=== PATIENT | female | born 1980 | race African-American/Black ===

== ENCOUNTER 2016-09-14 13:13 | Inpatient (IN) ==
[2016-09-14 14:05] LABS: URINE SOURCE VOIDED
[2016-09-14] MEDS ORDERED: AMPICILLIN 2 GM/NS 2 GM/100 ML IVPB IV ONE (14:12)
[2016-09-14 14:23] LABS: BILIRUBIN URINE NEGATIVE (NEGATIVE); BLOOD URINE TRACE (NEGATIVE); CLARITY CLEAR (CLEAR); COLOR YELLOW; LEUKOCYTES URINE 1+ (NEGATIVE); NITRITE URINE POSITIVE (NEGATIVE); PROTEIN URINE 2+(100 mg/dL) mg/dL (NEGATIVE); UROBILINOGEN URINE NORMAL
[2016-09-14] MEDS ORDERED: LR 1,000 ML ONE (14:30)
[2016-09-14 14:34] LABS: MANUAL DIFF NEEDED? NO
[2016-09-14 14:36] LABS: BASO% 0.1 % (0.0-0.8); EOS# 0.05 X1000 (0.0-0.7); EOS% 0.7 % (0.0-10.0); HEMATOCRIT 41.2 % (37.0-47.0); HEMOGLOBIN 13.8 g/dL (12.0-16.0); IMM GRAN# 0.02 X1000 (0.0-0.04); IMM GRAN% 0.3 % (0.0-0.5); LYMPH# 0.98 X1000 (1.2-3.4); LYMPH% 13.2 % (20.5-51.1); MCH 30.5 PG (27-31); MCHC 33.5 g/dL (33-37); MCV 90.9 FL (81-99); MONO# 0.65 X1000 (0.11-0.59); MONO% 8.8 % (1.7-9.3); MPV 12.6 FL (7.4-10.4); NEUT% 76.9 % (42.2-75.2); PLT 142 X1000 (130-400); RBC 4.53 XMIL (4.2-5.4)
[2016-09-14] MEDS ORDERED: SODIUM CHLORIDE 0.9% INJ SCH (14:45)
[2016-09-14] MEDS ORDERED: STADOL IV PRN (14:45)
[2016-09-14] MEDS ORDERED: PEPCID PO PRN (14:45)
[2016-09-14] MEDS ORDERED: ZOFRAN IV PRN (14:45)
[2016-09-14] MEDS ORDERED: KEFZOL 1 GM/D5W 1 GM/50 ML IVPB IV PRN (14:45)
[2016-09-14] MEDS ORDERED: LR 1,000 ML IV SCH (14:45)
[2016-09-14] MEDS ORDERED: TYLENOL PO PRN (14:45)
[2016-09-14] MEDS ORDERED: PEPCID PO ONE (14:45)
[2016-09-14] MEDS ORDERED: PITOCIN 30 UNITS/LR 30 UNITS/500 ML IV.SOLN IV SCH (14:45)
[2016-09-14] MEDS ORDERED: LR 500 ML IV ONE (14:45)
[2016-09-14] MEDS ORDERED: PEPCID IV PRN (14:45)
[2016-09-14] MEDS ORDERED: REGLAN PO ONE (14:45)
[2016-09-14] MEDS ORDERED: FENTANYL-BUPIV-NS 2 MCG-0.1% 200 ML EPIDURAL PRN (15:17)
[2016-09-14] MEDS ORDERED: SENSORCAINE-MPF 0.5%/EPI 1:200,000 ONE (17:01)
[2016-09-14] MEDS ORDERED: NORCO-10 PO PRN (17:55)
[2016-09-14] MEDS ORDERED: M-M-R II VACCINE SUBQ ONE (17:55)
[2016-09-14] MEDS ORDERED: HYDROXYZINE PO PRN (17:55)
[2016-09-14] MEDS ORDERED: PITOCIN IM PRN (17:55)
[2016-09-14] MEDS ORDERED: PITOCIN 20 UNITS/LR 20 UNITS/1,000 ML IV.SOLN IV SCH (17:55)
[2016-09-14] MEDS ORDERED: HYDROXYZINE IM PRN (17:55)
[2016-09-14] MEDS ORDERED: BOOSTRIX VACCINE IM ONE (17:55)
[2016-09-14] MEDS ORDERED: XYLOCAINE-MPF 1% INJ PRN (17:55)
[2016-09-14] MEDS ORDERED: PITOCIN 30 UNITS/LR 30 UNITS/500 ML IV.SOLN IV ONE (17:55)
[2016-09-14] MEDS ORDERED: PERI MEDS (DERMOPLAST/NUPERCAINAL/TUCKS) MISC PRN (17:55)
[2016-09-14] MEDS ORDERED: BENADRYL IV PRN (17:55)
[2016-09-14] MEDS ORDERED: MINERAL OIL PO PRN (17:55)
[2016-09-14] MEDS ORDERED: BENADRYL PO PRN (17:55)
[2016-09-14] MEDS ORDERED: CYTOTEC PO PRN (17:55)
[2016-09-14] MEDS ORDERED: AMBIEN PO PRN (17:55)
[2016-09-14] MEDS ORDERED: NORCO-5 PO PRN (17:55)
[2016-09-14] MEDS ORDERED: AMPICILLIN 1 GM/NS 1 GM/50 ML IVPB IV SCH (18:12)
[2016-09-14] MEDS: MOTRIN PO PRN (22:36)
[2016-09-14] MEDS: PERICOLACE PO SCH (22:36)
[2016-09-15 06:01] LABS: HEMATOCRIT 38.2 % (37.0-47.0); HEMOGLOBIN 12.6 g/dL (12.0-16.0); MCH 30.1 PG (27-31); MCV 91.2 FL (81-99); MPV 13.2 FL (7.4-10.4); RBC 4.19 XMIL (4.2-5.4)
[2016-09-15] MEDS: MOTRIN PO PRN (13:58)
[2016-09-15] MEDS: PERICOLACE PO SCH (20:18)
[2016-09-16 07:37] VITALS: BP 131/76
== END 2016-09-16 12:20 | disposition home or self-care (01) ==
LOC: P.OPLD 13:13 → P.LD 13:20 → P.WC 09-15 00:45
PROVIDERS: ADMIT Obstetrics & Gynecology; ATTEND Obstetrics & Gynecology